=== PATIENT | female | born 1970 | race American Indian/Alaskan Native ===

== ENCOUNTER 2016-05-24 10:16 | Outpatient (CLI) | payer OTHER ==
--- NOTE | 2016-05-25 08:46 | XRay Report ---
BILATERAL SHOULDERS, THREE VIEWS HISTORY: Bilateral shoulder pain. FINDINGS: Moderate osteoarthritic changes are identified at both glenohumeral joints. The left side is slightly more affected. There is normal articulation at the acromioclavicular joints. No evidence for fracture, dislocation, ligamentous injury or bone lesion. IMPRESSION: Moderate osteoarthritic changes, left greater than right. No acute process.
== END 2016-05-24 10:17 | disposition home or self-care (01) ==
LOC: XRAY 10:16
PROVIDERS: ATTEND Internal Medicine
DX: M19.012 Primary osteoarthritis, left shoulder (principal); F32.9 Major depressive disorder, single episode, unspecified; M19.011 Primary osteoarthritis, right shoulder; M25.511 Pain in right shoulder; M25.512 Pain in left shoulder

== ENCOUNTER 2016-06-10 09:04 | Emergency (ER) | payer MEDICAID, OTHER ==
[2016-06-10 10:06] VITALS: BP 178/94
[2016-06-10] MEDS ORDERED: BENADRYL PO ONE (11:36)
[2016-06-10] MEDS ORDERED: PEPCID PO ONE (11:36)
--- NOTE | 2016-06-10 13:49 | Emergency Department Report ---
Entered by EMIL GONZALEZ, acting as scribe for CASH FREED PA. ED Animal Bite HPI - General Chief Complaint: Animal Bite Stated Complaint: INSECT BITE ON FACE/ ARM SWOLLEN Time Seen by Provider: 06/10/16 11:21 Source: patient Mode of arrival: Ambulatory Limitations: No Limitations - History of Present Illness Initial Comments: 46 year old female presents to the ED for evaluation of suspected insect bite to left upper arm 3 days ago. Patient reports she woke with swelling to her arm 2 days ago that has worsened and spread to her left neck and face. She states she did not see the insect or note any spiders in her home. She rates associated pain and itching as a 9/10 in severity and reports mild improvement of symptoms with Benadryl. Denies difficulty swallowing, shortness of breath, chest pain, abdominal pain, nausea, and vomiting. MD Complaint: other (insect bite) Onset/Timin -: days(s) Left: Arm (upper arm) Animal: other (insect) Mechanism: bite Pain Description: constant Severity scale (0 -10): 9 Associated Symptoms: other (swelling, itching). denies: fever, chills, shortness of breath - Related Data Previous Rx's Medication Instructions Recorded Last Taken Type Cephalexin [Keflex] 500 mg PO Q6HR #20 capsule 06/10/16 Unknown Rx Diphenhydramine HCl [Benadryl 25 mg PO Q6H #30 tablet 06/10/16 Unknown Rx Allergy TAB] Naproxen [Naprosyn] 500 mg PO BID #30 tablet 06/10/16 Unknown Rx Prednisone [predniSONE 5 mg (6-Day 5 mg PO .TAPER #1 tab.ds.pk 06/10/16 Unknown Rx Pack, 21 Tabs)] Allergies Allergy/AdvReac Type Severity Reaction Status Date / Time acetaminophen [From Vicodin] Allergy Nausea Verified 06/10/16 09:59 hydrocodone bitartrate Allergy Nausea Verified 06/10/16 09:59 [From Vicodin] Latex, Natural Rubber Allergy Shortness Verified 06/10/16 09:59 of Breath Sulfa (Sulfonamide Allergy Shortness Verified 06/10/16 09:59 Antibiotics) of Breath ED Review of Systems Comment: All other systems reviewed and negative Constitutional: denies: chills, fever ENT: other (difficulty swallowing) Respiratory: denies: shortness of breath Cardiovascular: denies: chest pain Gastrointestinal: denies: abdominal pain, nausea, vomiting Skin: other (swelling to left upper arm, left neck, and left face; insect bite to left upper arm) ED Past Medical Hx - Past Medical History Hx Hypertension: Yes Hx Diabetes: Yes (BORDERLINE) Hx GERD: Yes - Surgical History Hx Breast Surgery: Yes (BREAST REDUCTION) Additional Surgical History: TONSILLECTOMY. GASTRIC BYPASS. C-SECTIONS X 2. TUBAL LIGATION - Social History Smoking Status: Never Smoker Substance Use Type: Alcohol - Medications Home Medications: Home Medications Medication Instructions Recorded Confirmed Last Taken Type Cephalexin [Keflex] 500 mg PO Q6HR #20 capsule 06/10/16 Unknown Rx Diphenhydramine HCl [Benadryl 25 mg PO Q6H #30 tablet 06/10/16 Unknown Rx Allergy TAB] Naproxen [Naprosyn] 500 mg PO BID #30 tablet 06/10/16 Unknown Rx Prednisone [predniSONE 5 mg (6-Day 5 mg PO .TAPER #1 tab.ds.pk 06/10/16 Unknown Rx Pack, 21 Tabs)] ED Physical Exam - General Limitations: No Limitations General appearance: other (The patient is well-developed and well-nourished. Patient is in NAD.) - Head Head exam: Present: atraumatic, normocephalic - ENT ENT exam: Present: normal orophraynx, mucous membranes moist. Absent: other ( swelling) - Neck Neck exam: Present: normal inspection, full ROM (supple). Absent: tenderness, meningismus, lymphadenopathy - Respiratory Respiratory exam: Present: normal lung sounds bilaterally. Absent: respiratory distress, wheezes, rales, rhonchi - Cardiovascular Cardiovascular Exam: Present: regular rate, normal rhythm, normal heart sounds. Absent: systolic murmur, diastolic murmur, rubs, gallop - GI/Abdominal GI/Abdominal exam: Present: soft, normal bowel sounds. Absent: distended, tenderness, guarding, rebound - Expanded Upper Extremity Exam Left Upper Arm exam: Present: erythema, other (edema is present. Point of insertion noted. No bleeding or drainage.) Neurosensory exam: Present: 2-point discrimination (intact to left upper extremity), other (normal sensation) Vascular: Present: normal capillary refill (left upper extremity. Peripheral pulses are intact) - Neurological Exam Neurological exam: Present: alert, oriented X3 - Psychiatric Psychiatric exam: Present: normal affect, normal mood ED Course Vital Signs 06/10/16 09:55 Temperature 98.0 F Pulse Rate 73 Respiratory 16 Rate Blood Pressure 178/94 O2 Sat by Pulse 100 Oximetry - Reevaluation(s) Reevaluation #1: 06/10/16 12:30 MDM: 46 year old female presents to the ED c/o swelling and pain to left upper arm, left neck, and left face secondary to suspected insect bite. Patient was given Benadryl, Pepcid and Solu-Medrol and reported symptomatic relief post medication. Patient is in no acute distress at this time. She will be discharged home and is encouraged to follow up with a primary care provider. She will be sent home on Benadryl, Keflex, naproxen and is encouraged to return to the emergency room for any worsening symptoms. ED Disposition Clinical Impression: Insect bite, Cellulitis Disposition: DISCHARGED TO HOME OR SELFCARE Is pt being admited?: No Does the pt Need Aspirin: No Condition: Stable Instructions: Insect Bite or Sting (ED) Additional Instructions: Follow-up with primary care provider. Return to the emergency department if symptoms worsen. Prescriptions: Cephalexin [Keflex] 500 mg PO Q6HR #20 capsule Diphenhydramine HCl [Benadryl Allergy TAB] 25 mg PO Q6H #30 tablet Naproxen [Naprosyn] 500 mg PO BID #30 tablet Prednisone [predniSONE 5 mg (6-Day Pack, 21 Tabs)] 5 mg PO .TAPER #1 tab.ds.pk Referrals: PRIMARY CARE, [Primary Care Provider] - 3-5 Days [facility] [Outside] - 3-5 Days Forms: Work/School Release Form(ED) Time of Disposition: 12:35 This documentation as recorded by the [facility] burns REBEKAH,accurately reflects the service I personally performed and the decisions made by ,CASH FREED PA.
== END 2016-06-10 12:40 | disposition home or self-care (01) ==
LOC: ED 09:04
DX: S40.862A Insect bite (nonvenomous) of left upper arm, initial encounter (principal); L03.114 Cellulitis of left upper limb; I10 Essential (primary) hypertension; E11.9 Type 2 diabetes mellitus without complications; K21.9 Gastro-esophageal reflux disease without esophagitis; Z90.89 Acquired absence of other organs; Z98.51 Tubal ligation status; Z88.2 Allergy status to sulfonamides; Z91.040 Latex allergy status; Z88.8 Allergy status to other drugs, medicaments and biological substances; W57.XXXA Bitten or stung by nonvenomous insect and other nonvenomous arthropods, initial encounter; Y93.89 Activity, other specified; Y99.8 Other external cause status; Y92.89 Other specified places as the place of occurrence of the external cause
CPT/HCPCS: 96372; 99282; J2930

== ENCOUNTER 2016-06-22 00:37 | Emergency (ER) | payer MEDICAID ==
[2016-06-22] MEDS ORDERED: BENADRYL PO ONE ×2 (02:07→02:16)
[2016-06-22] MEDS ORDERED: TYLENOL ONE (02:07)
[2016-06-22] MEDS ORDERED: TYLENOL PO ONE (02:16)
[2016-06-22 03:09] LABS: Basophils % (Auto) 0.5 % (0.0-1.8); Eosinophils % (Auto) 1.5 % (0.0-4.3); Hematocrit 38.2 % (30.3-42.9); Hemoglobin 12.3 gm/dl (10.1-14.3); Mean Corpuscular HGB Conc 32 % (30-34); Mean Corpuscular Hemoglobin 28 pg (28-32); Mean Corpuscular Volume 86 fl (79-97); Platelet Count 297 K/mm3 (140-440); Red Blood Count 4.47 M/mm3 (3.65-5.03); Red Cell Distribution Width 16.1 % (13.2-15.2); White Blood Count 8.9 K/mm3 (4.5-11.0)
[2016-06-22 03:22] LABS: Anion Gap 17 mmol/L; BUN/Creatinine Ratio 18.33; Blood Urea Nitrogen 11 mg/dL (7-17); Calcium 8.7 mg/dL (8.4-10.2); Carbon Dioxide 23 mmol/L (22-30); Chloride 102.7 mmol/L (98-107); Glucose 112 mg/dL (65-100); Potassium 3.9 mmol/L (3.6-5.0); Sodium 139 mmol/L (137-145)
[2016-06-22] MEDS ORDERED: CLEOCIN 900 MG/50 mL 900 MG/50 ML BAG IV ONE (04:36)
[2016-06-22] MEDS ORDERED: TORADOL IV ONE (04:36)
--- NOTE | 2016-06-22 04:36 | Emergency Department Report ---
- General Chief complaint: Skin Rash Stated complaint: ALLERGIC REACTION Time Seen by Provider: 06/22/16 04:25 Source: patient Mode of arrival: Ambulatory Limitations: No Limitations - History of Present Illness Initial comments: Patient here reported that she is having itching in, rash bombs and soreness to her right upper extremity. She was here on the for similar incident to left upper extremity at arm and she was treated with Keflex, Benadryl, naproxen and prednisone as an allergic reaction and skin infection. She said that her left arm got better but this week she noticed that similar problems to right forearm and right arm. She is reporting to not start her right forearm and redness with blisters to her right arm. She reports pain at 10 out of 10. Denies any nausea vomiting. Denies any fever or chills. Patient blood pressure is 157/100 and she says she has a history of high blood pressure and she takes medication. She said she noticed redness and bumps to her arm and forearm when she wakes up in the morning. He says she did see some spiders in her house but she didn't feel anything bite her. Denies any shortness of breath , wheezing, difficulty swallowing or coughing. MD complaint: rash, abscess/boil, other ( itching , rash, bumps RFA/ARM) Onset/Timin -: days(s) Tetanus Up to Date: yes Location: RUE Severity: severe Severity scale (0 -10): 10 Quality: other (sore) Consistency: constant Improves with: immobilization Worsens with: palpation, movement Context: other (unsure) Associated symptoms: athralgias Treatments Prior to Arrival: OTC topical medication - Related Data Previous Rx's Medication Instructions Recorded Last Taken Type Cephalexin [Keflex] 500 mg PO Q6HR #20 capsule 06/10/16 Unknown Rx Diphenhydramine HCl [Benadryl 25 mg PO Q6H #30 tablet 06/10/16 Unknown Rx Allergy TAB] Naproxen [Naprosyn] 500 mg PO BID #30 tablet 06/10/16 Unknown Rx Prednisone [predniSONE 5 mg (6-Day 5 mg PO .TAPER #1 tab.ds.pk 06/10/16 Unknown Rx Pack, 21 Tabs)] Clindamycin [Clindamycin CAP] 300 mg PO Q8H #30 cap 06/22/16 Unknown Rx Ibuprofen [Motrin] 800 mg PO Q8HR PRN #15 tablet 06/22/16 Unknown Rx Allergies Allergy/AdvReac Type Severity Reaction Status Date / Time acetaminophen [From Vicodin] Allergy Nausea Verified 06/10/16 09:59 hydrocodone bitartrate Allergy Nausea Verified 06/10/16 09:59 [From Vicodin] Latex, Natural Rubber Allergy Shortness Verified 06/10/16 09:59 of Breath Sulfa (Sulfonamide Allergy Shortness Verified 06/10/16 09:59 Antibiotics) of Breath Abscess Boil HPI - HPI Chief Complaint: Skin Rash Stated Complaint: ALLERGIC REACTION Time Seen by Provider: 06/22/16 04:25 Home Medications: Previous Rx's Medication Instructions Recorded Last Taken Type Cephalexin [Keflex] 500 mg PO Q6HR #20 capsule 06/10/16 Unknown Rx Diphenhydramine HCl [Benadryl 25 mg PO Q6H #30 tablet 06/10/16 Unknown Rx Allergy TAB] Naproxen [Naprosyn] 500 mg PO BID #30 tablet 06/10/16 Unknown Rx Prednisone [predniSONE 5 mg (6-Day 5 mg PO .TAPER #1 tab.ds.pk 06/10/16 Unknown Rx Pack, 21 Tabs)] Clindamycin [Clindamycin CAP] 300 mg PO Q8H #30 cap 06/22/16 Unknown Rx Ibuprofen [Motrin] 800 mg PO Q8HR PRN #15 tablet 06/22/16 Unknown Rx Allergies/Adverse Reactions: Allergies Allergy/AdvReac Type Severity Reaction Status Date / Time acetaminophen [From Vicodin] Allergy Nausea Verified 06/10/16 09:59 hydrocodone bitartrate Allergy Nausea Verified 06/10/16 09:59 [From Vicodin] Latex, Natural Rubber Allergy Shortness Verified 06/10/16 09:59 of Breath Sulfa (Sulfonamide Allergy Shortness Verified 06/10/16 09:59 Antibiotics) of Breath ED Review of Systems ROS: Stated complaint: ALLERGIC REACTION Other details as noted in HPI Comment: All other systems reviewed and negative Constitutional: denies: chills, fever ENT: denies: throat pain, congestion Respiratory: no symptoms reported Cardiovascular: denies: chest pain, palpitations, edema, syncope Gastrointestinal: denies: abdominal pain, nausea, vomiting Skin: rash, other (reports bumps, swelling, redness and sores to right upper extremity) Neurological: denies: headache ED Past Medical Hx - Past Medical History Previous Medical History?: Yes Hx Hypertension: Yes Hx Diabetes: Yes (BORDERLINE) Hx GERD: Yes - Surgical History Past Surgical History?: Yes Hx Breast Surgery: Yes (BREAST REDUCTION) Additional Surgical History: TONSILLECTOMY. GASTRIC BYPASS. C-SECTIONS X 2. TUBAL LIGATION - Family History Family history: no significant - Social History Smoking Status: Never Smoker Substance Use Type: None - Medications Home Medications: Home Medications Medication Instructions Recorded Confirmed Last Taken Type Cephalexin [Keflex] 500 mg PO Q6HR #20 capsule 06/10/16 Unknown Rx Diphenhydramine HCl [Benadryl 25 mg PO Q6H #30 tablet 06/10/16 Unknown Rx Allergy TAB] Naproxen [Naprosyn] 500 mg PO BID #30 tablet 06/10/16 Unknown Rx Prednisone [predniSONE 5 mg (6-Day 5 mg PO .TAPER #1 tab.ds.pk 06/10/16 Unknown Rx Pack, 21 Tabs)] Clindamycin [Clindamycin CAP] 300 mg PO Q8H #30 cap 06/22/16 Unknown Rx Ibuprofen [Motrin] 800 mg PO Q8HR PRN #15 tablet 06/22/16 Unknown Rx ED Physical Exam - General Limitations: No Limitations General appearance: alert, in no apparent distress - Head Head exam: Present: atraumatic, normocephalic, normal inspection - Eye Eye exam: Present: normal appearance, PERRL, EOMI. Absent: periorbital swelling , periorbital tenderness Pupils: Present: normal accommodation - ENT ENT exam: Present: normal exam, normal orophraynx, mucous membranes moist, TM's normal bilaterally, normal external ear exam - Neck Neck exam: Present: normal inspection, full ROM. Absent: tenderness, meningismus, lymphadenopathy - Respiratory Respiratory exam: Present: normal lung sounds bilaterally. Absent: respiratory distress, chest wall tenderness - Cardiovascular Cardiovascular Exam: Present: regular rate, normal rhythm, normal heart sounds - GI/Abdominal GI/Abdominal exam: Present: soft, normal bowel sounds. Absent: distended, tenderness, guarding, rebound, rigid - Expanded Upper Extremity Exam Right Shoulder Exam: Present: normal inspection, full ROM. Absent: tenderness, swelling, abrasion, laceration, ecchymosis, deformity, crepidus, dislocation, erythema, tenderness over AC joint Upper Arm exam: Present: full ROM, tenderness (right mid arm to distal arm), swelling (right mid arm to distal arm), erythema (right mid arm to distal forearm.), other (.Erythema that appears to be cellulitic with 2 open blisters and yellowish drainage). Absent: normal inspection, abrasion, laceration, ecchymosis, deformity Elbow exam: Present: normal inspection, full ROM. Absent: tenderness, swelling , abrasion, laceration, ecchymosis, deformity, crepidus, dislocation, erythema, effusion, pain w/ pronation/supination, tenderness over radial head Forearm Wrist exam: Present: full ROM, tenderness (noted 2 indurated areas that is nonfluctuant to outer lateral forearm. Tender to palpate), swelling (outer lateral right forearm), erythema (noted 2 indurated areas that is nonfluctuant to outer lateral forearm. Tender to palpate). Absent: normal inspection, abrasion, laceration, ecchymosis, deformity, crepidus, dislocation, tenderness over anatomical snuff box, pain with axial thumb loading Hand Wrist exam: Present: normal inspection, full ROM. Absent: tenderness, swelling, abrasion, laceration, ecchymosis, deformity, crepidus, dislocation, erythema, amputation, nail avulsion, subungual hematoma Neuro motor exam: Present: wrist extension intact, thumb opposition intact, thumb IP flexion intact, thumb adduction intact, fingers 2-5 abduction intact Neurosensory exam: Present: 2-point discrimination, radial nerve intact, ulnar nerve intact, median nerve intact Vascular: Present: normal capillary refill, radial pulse, brachial pulse, ulnar pulse. Absent: vascular compromise, Pallo, pulse deficit radial art, pulse deficit ulnar art, pulse deficit brachial art - Back Exam Back exam: Present: normal inspection, full ROM - Neurological Exam Neurological exam: Present: alert, oriented X3, normal gait, reflexes normal. Absent: motor sensory deficit - Psychiatric Psychiatric exam: Present: normal affect, normal mood - Skin Skin exam: Present: warm, dry, erythema (right mid to distal armerythema, tender to palpate with 2 small openings.). Absent: urticaria - Expanded Skin Exam Expanded Type of lesion: Present: other (right mid to distal armerythema, tender to palpate with 2 small openings.) Distribution of rash: RUE (right forearm and arm) Description of rash: Present: tenderness (right forearm with 2 indurated nonfluctuant area that is tender to palpate and no drainage. Right arm medial to Distally with Cellulitic area and 2 blisters.), erythematous (right forearm with 2 indurated nonfluctuant area that is tender to palpate and no drainage. Right arm medial to Distally with Cellulitic area and 2 blisters.) , swelling (right forearm with 2 indurated nonfluctuant area that is tender to palpate and no drainage. Right arm medial to Distally with Cellulitic area and 2 blisters.), blisters (right arm 2 (2 right arm.), indurated (to injury related area to right forearm). Absent: crusting, discharge, fluctuant ED Course Vital Signs 06/22/16 01:34 Temperature 98.1 F Pulse Rate 77 Respiratory 18 Rate Blood Pressure 157/100 [Right] O2 Sat by Pulse 100 Oximetry - Reevaluation(s) Reevaluation #1: 06/22/16 06:15 Patient given IV clindamycin 900 mg and Toradol 30 mg. She said her pain is better. ED Medical Decision Making - Lab Data Result diagrams: 06/22/16 02:55 06/22/16 02:55 Lab Results 06/22/16 06/22/16 Range/Units 02:55 02:55 WBC 8.9 (4.5-11.0) K/mm3 RBC 4.47 (3.65-5.03) M/mm3 Hgb 12.3 (10.1-14.3) gm/dl Hct 38.2 (30.3-42.9) % MCV 86 (79-97) fl MCH 28 (28-32) pg MCHC 32 (30-34) % RDW 16.1 H (13.2-15.2) % Plt Count 297 (140-440) K/mm3 Lymph % (Auto) 33.7 (13.4-35.0) % Gaston % (Auto) 9.8 H (0.0-7.3) % Eos % (Auto) 1.5 (0.0-4.3) % Baso % (Auto) 0.5 (0.0-1.8) % Lymph # 3.0 (1.2-5.4) K/mm3 Gaston # 0.9 H (0.0-0.8) K/mm3 Eos # 0.1 (0.0-0.4) K/mm3 Baso # 0.0 (0.0-0.1) K/mm3 Seg Neutrophils % 54.5 (40.0-70.0) % Seg Neutrophils # 4.8 (1.8-7.7) K/mm3 Sodium 139 (137-145) mmol/L Potassium 3.9 (3.6-5.0) mmol/L Chloride 102.7 (98-107) mmol/L Carbon Dioxide 23 (22-30) mmol/L Anion Gap 17 mmol/L BUN 11 (7-17) mg/dL Creatinine 0.6 L (0.7-1.2) mg/dL Estimated GFR > 60 ml/min BUN/Creatinine Ratio 18.33 % Glucose 112 H (65-100) mg/dL Calcium 8.7 (8.4-10.2) mg/dL - Medical Decision Making ED course: Lab work done and her white count was normal . She says she is prediabetic but her blood sugar is stable. Patient here for infection to right forearm and arm and she is unsure if she was bitten by a spider. She says she noticed area when she wakes up and she saw spiders in her house. PT had similar incident on 06/10/2016 and was treated and left arm got better. She now said similar problems to right forearm and arm that she noticed about 5 days ago. She reports some itching but more pain. I collaborated with Dr. Galeano. Patient presentation, lab findings, patient previous visits and he evaluated and saw patient. Patient will be discharged home with Motrin and clindamycin. She has a primary care physician she says she has an appointment with at 2 PM today. I discussed with patient that she needs to keep her appointment and have a primary care physician refer her to a roll edge machine operator and I'll also refer her to a roll edge machine operator. She was understanding of discharge instruction discharged home with prescription for clindamycin and Motrin. I also discussed with patient that she needs to keep a log of her blood pressure and takes her primary care physician office for possible adjustment of blood pressure medication. Critical care attestation.: If time is entered above; I have spent that time in minutes in the direct care of this critically ill patient, excluding procedure time. ED Disposition Clinical Impression: Cellulitis of right upper extremity Upper extremity pain Qualifiers: Laterality: right Qualified Code(s): M79.601 - Pain in right arm Hypertension Qualifiers: Hypertension type: essential hypertension Qualified Code(s): I10 - Essential ( primary) hypertension Disposition: DISCHARGED TO HOME OR SELFCARE Is pt being admited?: No Does the pt Need Aspirin: No Condition: Stable Instructions: Cellulitis (ED), Musculoskeletal Pain (ED), Hypertension (ED) Additional Instructions: Please keep your appointment with her primary care physician at 2 PM today. Please take antibiotic as prescribed Your blood pressure was elevated today so please follow-up with your primary care physician today and continue to take her blood pressure medication. Can take Motrin as prescribed for pain. Return to the hospital if he noticed increased redness and streaking to affected areas, develop fever, inability to move extremity especially hand. He will need to follow-up with a roll edge machine operator he can follow-up for this Dr. Ponce can have a primary care referral to a roll edge machine operator. keep Affected area clean and dry. Prescriptions: Clindamycin [Clindamycin CAP] 300 mg PO Q8H #30 cap Ibuprofen [Motrin] 800 mg PO Q8HR PRN #15 tablet PRN Reason: Pain Referrals: TAM MERRITT MD [Primary Care Provider] - 06/22/16 JACQUELINE PONCE MD [Staff Physician] - 2-3 Days Forms: Work/School Release Form(ED)
[2016-06-22] MEDS ORDERED: NACL 0.9% 1000 ML 1,000 ML IV ONE (06:28)
[2016-06-22 06:44] VITALS: BP 146/93
== END 2016-06-22 06:46 | disposition home or self-care (01) ==
LOC: ED 00:37
DX: L03.113 Cellulitis of right upper limb (principal); I10 Essential (primary) hypertension; M79.601 Pain in right arm; E11.9 Type 2 diabetes mellitus without complications; K21.9 Gastro-esophageal reflux disease without esophagitis; Z88.8 Allergy status to other drugs, medicaments and biological substances; Z88.2 Allergy status to sulfonamides; Z91.040 Latex allergy status
CPT/HCPCS: 36415; 80048; 85025; 96365; 96375; 99283; J1885

== ENCOUNTER 2016-12-02 10:42 | Outpatient (CLI) | payer MEDICAID ==
--- NOTE | 2016-12-02 16:31 | XRay Report ---
XRAY LEFT KNEE THREE VIEWS: 12/02/16 10:42:00 CLINICAL: Pain. FINDINGS: No fracture or dislocation. Very mild osteoarthritis involving the medial joint space and the patellofemoral joint. The joint spaces are normal but there are small osteophytes. No joint effusion. The soft tissues are normal. IMPRESSION: Mild osteoarthritis.
== END 2016-12-02 10:43 | disposition home or self-care (01) ==
LOC: SPVIMAG 10:42
DX: M17.12 Unilateral primary osteoarthritis, left knee (principal); I10 Essential (primary) hypertension

== ENCOUNTER 2017-07-29 09:27 | Outpatient (CLI) | payer MEDICAID ==
--- NOTE | 2017-07-29 10:22 | XRay Report ---
ROUTINE CHEST, TWO VIEWS: HISTORY: Cough. The trachea, heart, mediastinal contour, lung amado and bony thorax are unremarkable. IMPRESSION: Unremarkable chest x-ray.
== END 2017-07-29 09:28 | disposition home or self-care (01) ==
LOC: SPVIMAG 09:27
DX: R05 Cough (principal)
CPT/HCPCS: 71046